=== PATIENT | female | born 1980 | race Caucasian/White ===

== ENCOUNTER 2016-02-14 09:58 | Emergency (ER) | payer MEDICAID ==
[2016-02-14] MEDS ORDERED: Hydrocodone/APAP 5mg/325mg Tab PO ONE (10:22)
--- NOTE | 2016-02-14 10:27 | ED Physician Chart ---
Chief Complaint/HPI - Patient Information Date Seen:: 02/14/16 Time Seen:: 10:23 Chief Complaint:: back pain History of Present Illness:: low back pain after slipped and fell back on stairs this am. landed on buttock. no head impact. no othr injury. pain at low back. is severe ache w worse w mvt. no meds tried today yet. her drove her to ED. here w young dtr as well. no weak/numb in legs. no abd pain, no sellers. lmp is nrml and on time and now. hx of back pain months ago also after fall. mo dona pmh. no meds. Allergies:: Allergies Allergy/AdvReac Type Severity Reaction Status Date / Time ibuprofen [From Motrin] Allergy Verified 12/03/15 13:00 ketorolac [From Toradol] Allergy Verified 12/03/15 13:00 Vitals:: Vital Signs - 8 hr 02/14/16 10:08 Temp 97.9 F HR 77 RR 16 BP 122/65 O2 Sat % 100 Historian:: Patient Review of Systems - Review of Systems General/Constitutional: No fever, No chills, No weight loss, No weakness, No diaphoresis, No edema, No loss of appetite Skin: No skin lesions, No rash, No bruising Head: No headache, No light-headedness Eyes: No loss of vision, No pain, No diplopia ENT: No earache, No nasal drainage, No sore throat, No tinnitus Neck: No neck pain, No swelling, No thyromegaly, No stiffness, No mass noted Cardio Vascular: No chest pain, No palpitations, No PND, No orthopnea, No edema Pulmonary: No SOB, No cough, No sputum, No wheezing GI: No nausea, No vomiting, No diarrhea, No pain, No melena, No hematochezia, No constipation, No hematemesis G/U: No dysuria, No frequency, No hematuria Musculoskeletal: No bone or joint pain, Back pain, No muscle pain Endocrine: No polyuria, No polydipsia Psychiatric: No prior psych history, No depression, No anxiety, No suicidal ideation Hematopoietic: No bruising, No lymphadenopathy Allergic/Immuno: No urticaria, No angioedema Neurological: No syncope, No focal symptoms, No weakness, No paresthesia, No headache, No seizure, No dizziness, No confusion, No vertigo Past Medical History - Past Medical History Past Medical History: Other (prior back pain) Social History: Non Smoker, No Alcohol, No Drug Use Medication: None Family Medical History - Family Member Father Ethnicity: Living Status: Hx Family Diabetes: Yes Physical Exam - Physical Examination General/Constitutional: Awake, Well-developed, well-nourished, Alert, No distress, GCS 15, Non-toxic appearing, Ambulatory Other Gen/Cons comments:: alert, nad. nontoxic. no neuro defecits no abd tndrness. low lumbar spine tndrness around L5 region and lateral to this. no cva tndrness. Head: Atraumatic Eyes: Lids, conjuctiva normal, PERRL, EOMI Skin: Nl inspection, No rash, No skin lesions, No ecchymosis, Well hydrated, No lymphadenopathy ENMT: External ears, nose nl, Nasal exam nl, Lips, teeth, gums nl Neck: Nontender, Full ROM w/o pain, No JVD, No nuchal rigidity, No bruit, No mass, No stridor Respiratory: Nl effort/Exclusion, Clear to Auscultation, No Wheeze/Rhonchi/Rales Cardio Vascular: RRR, No murmur, gallop, rubs, NL S1 S2 GI: No tenderness/rebounding/guarding, No organomegaly, No hernia, Normal BS's, Nondistended, No mass/bruits, No McBurney tenderness : No CVA tenderness Extremities: No tenderness or effusion, Full ROM, normal strength in all extremities, No edema, Normal digits & nails Neuro/Psych: Alert/oriented, DTR's symmetric, Normal sensory exam, Normal motor strength, Judgement/insight normal, Mood normal, Normal gait, No focal deficits Labs/Radiology/EKG Results - Lab Results Results: pt was taken to Rad dept for xray and staff tell me tech was aware that hcg was incomplete ...I was not informed at time and am unclear why this was not completed. pt does say she is on her menses now. - Radiology Results Results: xray L spine no fx/ wnl. nrml ED Septic Shock - . Is Septic Shock (SBP<90, OR Lactate>4 mmol\L) present?: No - <6hrs of presentation: Vital Signs: Vital Signs - 8 hr 02/14/16 10:08 Temp 97.9 F HR 77 RR 16 BP 122/65 O2 Sat % 100 Reassessment (Disposition) - Reassessment Reassessment:: pt feels better after meds. dx and plan dw pt. fu w pmd advised this week. return if worse. Reassessment Condition:: Improved - Diagnosis Diagnosis:: lumbar strain/contusion - Aftercare/Follow up Instructions Aftercare/Follow-Up Instructions:: Counseled pt & family regarding lab results/ diagnosis & need follow up Medication Prescribed:: norco 5s no 14 - Patient Disposition Discharge/Transfer:: Home Condition at Disposition:: Improved
--- NOTE | 2016-02-14 12:00 | Diagnostic Imaging Report ---
Lumbar spine (5 views) HISTORY: Pain Alignment is normal. Disc spaces are maintained. No focal bony lesions. IMPRESSION: No acute abnormalities
== END 2016-02-14 11:41 | disposition home or self-care (01) ==
LOC: ER 09:58
DX: S39.012A Strain of muscle, fascia and tendon of lower back, initial encounter (principal); Z88.6 Allergy status to analgesic agent; Z88.8 Allergy status to other drugs, medicaments and biological substances; W10.8XXA Fall (on) (from) other stairs and steps, initial encounter; Y93.89 Activity, other specified; Y92.89 Other specified places as the place of occurrence of the external cause; Y99.8 Other external cause status
CPT/HCPCS: 72110-TC; 81025-TC; Z7502

== ENCOUNTER 2017-06-15 14:58 | Emergency (ER) | payer MEDICAID ==
--- NOTE | 2017-06-15 15:29 | ED Physician Chart ---
ED Chief Complaint/HPI - Patient Information Date Seen:: 06/15/17 Time Seen:: 15:25 Chief Complaint:: RIGHT SHOULDER INJURY WHEN SHE WALKED INTO A POLE. I CONDUCTED History of Present Illness:: NURSING PERSONNEL CONVEYED TO ME THAT THE PATIENT WAS TECH STATING AND SHE WALKED INTO A POLE. SHE CAME TO THE EMERGENCY DEPARTMENT COMPLAINING OF PAIN IN THE RIGHT SHOULDER AND I INSTRUCTED NURSING TO GO AHEAD AND PUT HER IN FOR A RIGHT SHOULDER X-RAY. BEFORE I COULD GO TO SEE THE PATIENT HAD ELOPED WITH HER FAMILY. I CONDUCTED A LOCAL SEARCH OF THE PREMISES AND WAS UNABLE TO LOCATE THE PATIENT. THE SEARCH WAS CONDUCTED WITH RINKU, THE NURSE INVOLVED. Allergies:: Allergies Allergy/AdvReac Type Severity Reaction Status Date / Time ibuprofen [From Motrin] Allergy Verified 06/15/17 15:10 ketorolac [From Toradol] Allergy Verified 06/15/17 15:10 Vitals:: Vital Signs - 8 hr 06/15/17 15:11 Temp 98.7 F HR 88 RR 18 BP 137/81 O2 Sat % 98 ED Review of Systems - Review of Systems General/Constitutional: No loss of appetite, Other (PATIENT ELOPED FROM FACILITY PRIOR TO REVIEW OF SYSTEMS, PHYSICAL EXAMINATION, OR RADIOGRAPHIC STUDIES.) Family Medical History - Family Member Father History Unknown: Yes Ethnicity: Living Status: Hx Family Diabetes: Yes ED Septic Shock - . Is Septic Shock (SBP<90, OR Lactate>4 mmol\L) present?: No - <6hrs of presentation: Vital Signs: Vital Signs - 8 hr 06/15/17 15:11 Temp 98.7 F HR 88 RR 18 BP 137/81 O2 Sat % 98 ED Reassessment (Disposition) - Patient Disposition Discharge/Transfer:: Elope/AWOL
== END 2017-06-15 15:25 | disposition left against medical advice (07) ==
LOC: ER 14:58
DX: S49.91XA Unspecified injury of right shoulder and upper arm, initial encounter (principal); Z88.5 Allergy status to narcotic agent; Z88.8 Allergy status to other drugs, medicaments and biological substances; W22.8XXA Striking against or struck by other objects, initial encounter; Y93.89 Activity, other specified; Y92.89 Other specified places as the place of occurrence of the external cause; Y99.8 Other external cause status
CPT/HCPCS: Z7502